=== PATIENT | female | born 1950 | race Caucasian/White ===

== ENCOUNTER 2016-04-17 07:37 | Day surgery (SDC) | payer OTHER, BC ==
[2016-04-11 15:38] VITALS: BMI 33.5
[2016-04-17] MEDS ORDERED: PROPOFOL 20 ML ONE ×2 (07:41)
[2016-04-17] MEDS ORDERED: LIDOCAINE HCL/PF 2% SDV 5ML VIAL ONE (07:45)
[2016-04-17 13:13] VITALS: BP 134/84; PULSE 61; TEMP 98
--- NOTE | 2016-05-09 12:19 | PATH ---
Surgical Pathology Report Patient Name: ROSALINE MCCALLUM [facility]. Rec. #: [id number] /Age/Gender: 1950 (Age: 65) / F Account: [id number] Location: Taken: 04/17/2016 Received: 04/18/2016 Reported: 05/09/2016 Physicians: Gerald North M.D. Specimen(s) Received SPLENIC FLEXURE BIOPSY Clinical History History of polyps Final Diagnosis SPLENIC FLEXURE, BIOPSY: HYPERPLASTIC POLYP. Electronically Signed Alexia Lott M.D. Gross Description Received in formalin, labeled "splenic flexure" is a ward, irregular portion of soft tissue measuring 0.4 cm. in greatest dimension. The specimen is submitted in toto in one cassette. 04/18/201604/18/2016
== END 2016-04-17 11:00 | disposition home or self-care (01) ==
LOC: FASU-ENDO 07:37
PROVIDERS: ATTEND Internal Medicine Gastroenterology
PROC: 0DBL8ZX Excision of Transverse Colon, Via Natural or Artificial Opening Endoscopic, Diagnostic (ICD-10-PCS; principal; 2016-04-17 08:50)
DX: Z86.010 Personal history of colon polyps (principal); D12.3 Benign neoplasm of transverse colon; K57.30 Diverticulosis of large intestine without perforation or abscess without bleeding
CPT/HCPCS: 88305-TC

== ENCOUNTER 2019-11-17 07:40 | Day surgery (SDC) | payer OTHER ==
[2019-11-15 14:54] VITALS: BMI 32.5
[2019-11-17] MEDS ORDERED: PROPOFOL 20 ML ONE ×3 (07:55)
[2019-11-17] MEDS ORDERED: LIDOCAINE HCL/PF 2% SDV 5ML VIAL ONE (07:55)
[2019-11-17 08:10] VITALS: TEMP 98.9
[2019-11-17 09:15] VITALS: PULSE 60
[2019-11-17 09:27] VITALS: BP 130/60
== END 2019-11-17 09:45 | disposition home or self-care (01) ==
LOC: FASU-ENDO 07:40
PROVIDERS: ATTEND Internal Medicine Gastroenterology
PROC: 0DJD8ZZ Inspection of Lower Intestinal Tract, Via Natural or Artificial Opening Endoscopic (ICD-10-PCS; principal; 2019-11-17 08:28)
DX: Z86.010 Personal history of colon polyps (principal)